=== PATIENT | male | born 1980 | race Two or more races ===

== ENCOUNTER 2024-05-28 18:06 | Emergency (ER) | payer MEDICAID, OTHER ==
[~2024-05-28] VITALS: Ht 160 cm; Wt 66.0 kg
[2024-05-28 18:16] VITALS: BP 148/80; PULSE 71; RESP 16; TEMP 98; O2SAT 98
[2024-05-28] MEDS: LIDOCAINE 1% HCL (LOCAL ANESTH.) INJ 20ML MDV IJ ONE (18:26)
[2024-05-28] MEDS: TETANUS-DIPTH-ACEL PERTUSSIS 0.5ML SYR Tdap IM ONE (18:42)
[2024-05-28] MEDS: HYDROcodone-ACET 10/325MG TAB PO ONE (18:43)
[2024-05-28] MEDS ORDERED: AUG875T PO (18:58)
[2024-05-28] MEDS ORDERED: IBUP-1456 PO (18:58)
--- NOTE | 2024-05-28 18:58 | ED.PDOC ---
HPI Comments PT REPORTS CUTTING WOOD WITH A KNIFE AND CUT LEFT THUMB, NOTED 2CM LACERATION. BLEEDING CONTROLLED, APPLIED CLEAN DRY DRESSING. DENIES NUMBNESS OR WEAKNESS Chief Complaint: Laceration Time Seen by MD: 18:08 Primary Care Provider: UNKNOWN Reviewed Notes: Nurses Notes, Medications, Allergies Allergies: Coded Allergies: NO KNOWN ALLERGIES (Unverified , 05/28/24) Home Meds Active Scripts Ibuprofen (Ibuprofen) 800 Mg Tab, 800 MG PO Q8HP PRN for 5 Days, #15 TAB Prov:VINCENZO HERNANDEZ 05/28/24 Amoxicillin & Pot Clavulanate (AUGMENTIN TABLET) 875 Mg Tb, 875 MG PO BID for 5 Days, #10 TAB Prov:VINCENZO HERNANDEZ 05/28/24 Information Source: Patient Mode of Arrival: Ambulatory Complexity: Simple Laceration Length (cm): 0 Past Medical History PAST MEDICAL HISTORY: Denies Surgical History: Denies all surgeries Family History Family History: Unknown Social History Smoker: Non-Smoker Alcohol: Denies ETOH Use Drugs: Denies Drug Use Constitutional: denies: chills, diaphoresis, fatigue, fever, malaise, sweats, weakness, others EENTM: denies: blurred vision, double vision, ear bleeding, ear discharge, ear drainage, ear pain, ear ringing, eye pain, eye redness, hearing loss, mouth pain, mouth swelling, nasal discharge, nose bleeding, nose congestion, nose pain, photophobia, tearing, throat pain, throat swelling, voice changes, others Respiratory: denies: cough, hemoptysis, orthopnea, SOB at rest, shortness of breath, SOB with excertion, stridor, wheezing, others Cardiovascular: denies: chest pain, dizzy spells, diaphoresis, Dyspnea on exertion, edema, irregular heart beat, left arm pain, lightheadedness, palpitations, PND, syncope, others Gastrointestinal: denies: abdomen distended, abdominal pain, blood streaked bowels, constipated, diarrhea, dysphagia, difficulty swallowing, hematemesis, melena, nausea, poor appetite, poor fluid intake, rectal bleeding, rectal pain, vomiting, others Genitourinary: denies: burning, dysuria, flank pain, frequency, hematuria, incontinence, penile discharge, penile sore, pain, testicle pain, testicle swelling, urgency, others Neurological: denies: dizziness, fainting, headache, left sided numbness, left sided weakness, numbness, paresthesia, pre-existing deficit, right sided numbness, right sided weakness, seizure, speech problems, tingling, tremors, weakness, others Musculoskeletal: denies: back pain, gout, joint pain, joint swelling, muscle pain, muscle stiffness, neck pain, others Integumetry: reports: laceration (1/2 INCH LACERATION LEFT THUMB); denies: bruises, change in color, change in hair/nails, dryness, lesions, lumps, rash, wounds, others Allergic/Immunocompromised: denies: Difficulty Healing, Frequent Infections, Hives, Itching, others Hematologic/Lymphatic: denies: anemia, blood clots, easy bleeding, easy bruising, swollen glands, others Endocrine: denies: excessive hunger, excessive sweating, excessive thirst, excessive urination, flushing, intolerance to cold, intolerance to heat, unexplained weight gain, unexplained weight loss, others Psychiatric: denies: anxiety, bipolar disorder, depression, hopeless, panic disorder, schizophrenia, sleepless, suicidal, others Physical Exam General Appearance: No Apparent Distress, Normal HEENT: Pharynx Normal Neck: Full Range of Motion, Non-Tender Respiratory: Lungs Clear, No Respiratory Distress, Normal Breath Sounds Cardiovascular: No Murmur, Normal Peripheral Pulses, Regular Rate/Rhythm Breast Exam: Deferred Gastrointestinal: Non Tender, Soft Genitalia: Deferred Pelvic: Deferred Rectal: Deferred Extremities: Normal capillary refill, Normal inspection, Normal range of mo tion, Non-tender, No pedal edema Musculoskeletal : Apperance: Normal Neurologic: Alert, pediatric care coordinator II-XII nml as Tested, No Motor Deficits, Normal Affect, Normal Mood, No Sensory Deficits Cerebellar Function: Normal Reflexes: Normal Skin: Dry, Lacerations (1.5 IN LACERATION TO TO LEFT POSTERIOR PROXIMAL THUMB CONTROLLED NO OBVIOUS FOREIGN BODY NOTED STRENGTH SENSORY MOTION INTACT CAP REFILL LESS 3 SECONDS), Normal Color, Warm Lymphatic: No Adenopathy Was a procedure done? Was a procedure done?: Yes Sedation Sedation?: No Informed consent obtained: Yes Laceration Repair : Location LEFT THUMB Length .5 IN Anesthetic: Lidocaine, Without epi Laceration Repair Prep: Saline Laceration Repair Wound Comple: epidermis/dermis repair Laceration Repair: Number of sutures (6), Simple Informed consent obtained: Yes Risks, benefits, and alternati: Yes Notes PATIENT TOLERATED WELL MINIMAL BLOOD LOSS Differential diagnosis Generic Laceration: Retained Foriegn Body, Neurovascular Injury, Abrasion/Contusion X-Ray, Labs, Meds, VS Vital Signs Date Time Temp Pulse Resp B/P (MAP) Pulse Ox O2 Delivery O2 Flow Rate FiO2 05/28/24 18:16 98.0 71 16 148/80 (102) 98 98.0 05/28/24 18:16 71 16 98 Room Air 05/28/24 18:14 98.0 71 16 148/80 (102) 98 98.0 Current Medications Medications (Trade) Dose Ordered Sig/Aakash Route Start Time Stop Time Status Last Admin Diphtheria/ Tetanus/Acell Pertussis (Boostrix T-Dap) 0.5 ml ONCE ONCE IM 05/28/24 18:30 05/28/24 18:31 DC 05/28/24 18:42 Acetaminophen/ Hydrocodone Bitart ([place] 10/325MG Tab) 1 tab ONCE ONCE PO 05/28/24 18:30 05/28/24 18:31 DC 05/28/24 18:43 X-Ray, Labs, Meds, VS Comment SEE PROCEDURE NOTE. SCRIPT PROPHYLACTIC ANTIBIOTICS X5 DAYS MOTRIN ADVISED TAKE MEDICATION PRESCRIBED SIDE EFFECTS DISCUSSED. RE-EVALUATION OF YOUR INJURY IN 2 DAYS WITH YOUR PCP SUTURE REMOVAL IN 5-7 DAYS KEEP SPLINT ON REMOVE DRESSING IN 24-48 HOURS. ER RETURN PRECAUTIONS GIVEN PATIENT INDICATES UNDERS TANDING AGREES WITH DISCHARGE PLAN OF CARE. Time of 1ST Reevaluation: 18:50 Reevaluation 1ST: Improved Patient Education/Counseling: Diagnosis, Treatment, Prognosis, Need For Follow Up Family Education/Counseling: No Family Present Departure 1 Departure Time of Disposition: 18:52 Impression: Primary Impression: Laceration of thumb without damage to nail Qualified Codes: S61.012D - Laceration without foreign body of left thumb without damage to nail, subsequent encounter Disposition: HOME / SELF CARE / HOMELESS Condition: Stable Additional Instructions: Discharge Note: Continue on your medications. Drink plenty of fluids. Follow up with your primary Dr. If your condition becomes worse call and follow up with your primary Dr. for instructions or return to the ER if needed. Have the stitches/sherron removed in 7-10 days. Keep wound clean and dry. Thank you for visiting [facility]. e-Prescriptions Ibuprofen (Ibuprofen) 800 Mg Tab 800 MG PO Q8HP PRN for 5 Days, #15 TAB Prov: VINCENZO HERNANDEZ 05/28/24 Amoxicillin & Pot Clavulanate (AUGMENTIN TABLET) 875 Mg Tb 875 MG PO BID for 5 Days, #10 TAB Prov: VINCENZO HERNANDEZ 05/28/24 Discharged With: Friend Critical Care Note Critical Care Time?: No Stability Stability form required: No VINCENZO HERNANDEZ May 28, 2024 18:58
== END 2024-05-28 19:02 | disposition home or self-care (01) ==
LOC: ER 18:10
DX: S61.012A Laceration without foreign body of left thumb without damage to nail, initial encounter (principal); W26.0XXA Contact with knife, initial encounter; Y93.89 Activity, other specified; Y92.89 Other specified places as the place of occurrence of the external cause; Y99.8 Other external cause status
CPT/HCPCS: 12002; 90471; 90715